=== PATIENT | male | born 1965 | race Caucasian/White ===

== ENCOUNTER 2022-03-18 09:47 | Day surgery (SDC) | payer OTHER ==
[2022-03-16 12:15] LABS: BASOPHILS % (AUTO) 0.9 % (0-1); EOSINOPHILS % (AUTO) 0.7 % (0-6); LYMPHOCYTES # (AUTO) 1.3 X10'3 (1.1-4.8); LYMPHOCYTES % (AUTO) 29.8 % (21-51); MEAN CORPUSCULAR HGB CONC 31.1 g/dL (33.0-36.5); MEAN PLATELET VOLUME 8.8 FL (7.4-10.4); MONOCYTES # (AUTO) 0.4 X10'3 (0-0.9); MONOCYTES % (AUTO) 9.3 % (2-12); NEUTROPHILS # (AUTO) 2.6 X10'3 (1.8-7.7); NEUTROPHILS % (AUTO) 59.3 % (42-75); PRE OP HEMATOCRIT 39.4 % (42.0-52.0); PRE OP HEMOGLOBIN 12.3 g/dL (14.0-17.9); PRE OP PLATELET COUNT 268 X10'3 (140-440); RED BLOOD COUNT 5.33 X10'6 (4.70-6.10); RED CELL DISTRIBUTION WIDTH 33.2 % (11.5-14.5)
[2022-03-16 12:21] LABS: CLARITY,URINE CLEAR (Clear); COLOR,URINE YELLOW (Yellow); GLUCOSE, URINE NEGATIVE (Neg); KETONES,URINE NEGATIVE (Neg); LEUKOCYTE ESTERASE ,URINE NEGATIVE (Neg); NITRITES, URINE NEGATIVE (Neg); OCCULT BLOOD,URINE NEGATIVE (Neg); PROTEIN,URINE NEGATIVE (Neg); UROBILINOGEN,URINE 0.2 E.U/dL (0.2-1.0)
[2022-03-16 12:25] LABS: UA COLLECTION TYPE CLN CATCH MIDSTREAM
[2022-03-16 12:33] LABS: ALBUMIN 2.5 G/DL (3.4-5.0); ALBUMIN/GLOBULIN RATIO 0.7 (1.1-1.5); ALKALINE PHOSPHATASE 108 IU/L (46-116); BLOOD UREA NITROGEN 10 MG/DL (7-18); BUN/CREATININE RATIO 11.1 (5.4-32.0); CALCIUM 8.7 MG/DL (8.5-10.1); CHLORIDE 105 MMOL/L (99-107); PRE OP ALT 21 U/L (30-65); PRE OP ANION GAP 4 (8-16); PRE OP AST 16 U/L (10-37); PRE OP BILIRUB, TOTAL 0.3 MG/DL (0.0-1.0); PRE OP GLUCOSE 85 MG/DL (70-104); PRE OP POTASSIUM 3.9 MMOL/L (3.4-5.1); PRE OP SODIUM 140 MMOL/L (135-145); TOTAL CARBON DIOXIDE 31.5 MMOL/L (24-32); TOTAL PROTEIN 6.1 G/DL (6.4-8.2); eGFR 87 ML/MIN
[2022-03-16 12:51] LABS: ANISOCYTOSIS 3+; ELLIPTOCYTES 1+; HYPOCHROMASIA 1+; MICROCYTOSIS 1+; PLATELET ESTIMATE NORMAL
[~2022-03-18] VITALS: Ht 177.8 cm; Wt 70.0 kg
[2022-03-18] VITALS (12 sets, daily range): BP systolic 125–176; BP diastolic 82–132
[~2022-03-18 09:47] MED LIST: FERR325T28 PO; PANT40TA54 PO; ceFAZolin inj. 2,000 MG in dextrose 5%-water 100 ML IV ONE; famotidine 20mg tablet PO ONE; ringers solution, lacted 1,000 ML IV SCH
[2022-03-18] MEDS ORDERED: BUPIVAcaine/PF 2.5 mg/ml (0.25%) 30ml vial ONE (14:37)
[2022-03-18] MEDS ORDERED: morphine 4 MG/ML inj SYRINge IV PRN (14:50)
[2022-03-18] MEDS ORDERED: meperidine/PF 25mg/ml syringe IV PRN ×3 (14:50)
[2022-03-18] MEDS ORDERED: acetaminophen 1,000mg/100ml IV 100 ML IV PRN (14:50)
[2022-03-18] MEDS ORDERED: hydrALAZINE 20mg/ml inj. IV PRN (14:50)
[2022-03-18] MEDS ORDERED: proCHLORperazine 10 MG/2 ml inj IV PRN (14:50)
[2022-03-18] MEDS ORDERED: ondansetron/PF 4mg/2ml inj IV PRN (14:50)
[2022-03-18] MEDS ORDERED: morphine 2 MG/ML inj. syringe IV PRN (14:50)
[2022-03-18] MEDS ORDERED: labetalol 20mg/4ml (5mg/ml) syringe IV PRN (14:50)
[2022-03-18] MEDS ORDERED: ringers solution, lacted 1,000 ML IV SCH (14:50)
[2022-03-18] MEDS ORDERED: sevoflurane 250ml liquid IH ONE (14:59)
[2022-03-18] MEDS ORDERED: midazolam 1 mg/ML 2ml injection ONE (15:00)
[2022-03-18] MEDS ORDERED: fentaNYL /PF 50mcg/ml 5ml ampule ONE (15:00)
[2022-03-18] MEDS ORDERED: dexamethasone sod phosphate 4mg/ml inj. ONE (15:42)
[2022-03-18] MEDS ORDERED: ondansetron/PF 4mg/2ml inj ONE (15:42)
[2022-03-18] MEDS ORDERED: LIDOcaine 2% (20mg/ml) 5ml vial ONE (15:42)
[2022-03-18] MEDS ORDERED: propofol inj 20 ML IV ONE (15:42)
[2022-03-18] MEDS ORDERED: rocuronium 10mg/ml inj IV ONE (15:42)
[2022-03-18] MEDS ORDERED: glycopyrrolate 0.2mg/ml inj ONE (16:02)
[2022-03-18] MEDS ORDERED: neostigmine methylsulfate 1 MG/ML 10ml vial ONE (16:02)
--- NOTE | 2022-03-18 16:20 | NUR ---
Received from OR via [facility] , accompanied by Anesthesiologist RODY and report given by Anesthesiolgist. PT ON MASK FOR O2. PT DROWSY BUT ABLE TO FOLLOW DIRECTIONS. DENIES PAIN OR DISCOMFORT
--- NOTE | 2022-03-18 18:45 | NUR ---
I HAVE REVIEWED D/C INSTRUCTIONS WITH PATIENT AND THEY HAVE VERBALIZED UNDERSTANDING OF INSTRUCTIONS. PATIENT D/C HOME WITH ALL BELONGINGS AND FAMILY GAVE TRANSPORT
== END 2022-03-18 18:25 | disposition home or self-care (01) ==
LOC: PAS 09:47
PROVIDERS: ATTEND Surgery
DX: K81.1 Chronic cholecystitis (principal); K21.9 Gastro-esophageal reflux disease without esophagitis; M19.90 Unspecified osteoarthritis, unspecified site; F32.9 Major depressive disorder, single episode, unspecified; Z79.899 Other long term (current) drug therapy; Z98.890 Other specified postprocedural states
CPT/HCPCS: 47562; 80053; 81003; 82948; 85025; 87811; 93005; J0131; J0690; J1100; J2175; J2250; J2405; J2704; J2710; J3010; J3490; J7030; J7060; J7120; Z7506; Z7508; Z7512; 85008; A4215; A4618; A7000

== ENCOUNTER 2022-09-29 18:22 | Inpatient (IN) | payer OTHER ==
[~2022-09-29] VITALS: Ht 177.8 cm; Wt 148.2 kg
[~2022-09-29 18:22] MED LIST changes: -ceFAZolin inj. 2,000 MG in dextrose 5%-water 100 ML IV ONE; -famotidine 20mg tablet PO ONE; -ringers solution, lacted 1,000 ML IV SCH
[2022-09-29 19:40] LABS: BASOPHILS % (AUTO) 0.2 % (0-1); EOSINOPHILS % (AUTO) 0 % (0-6); HEMATOCRIT 44.9 % (42.0-52.0); HEMOGLOBIN 15.2 g/dl (14.0-17.9); LYMPHOCYTES # (AUTO) 1.1 X10'3 (1.1-4.8); LYMPHOCYTES % (AUTO) 10.5 % (21-51); MEAN CORPUSCULAR HEMOGLOBIN 30.8 PG (27.0-31.0); MEAN CORPUSCULAR HGB CONC 33.9 g/dL (33.0-36.5); MEAN CORPUSCULAR VOLUME 91.1 FL (78-98); MEAN PLATELET VOLUME 6.7 FL (7.4-10.4); MONOCYTES # (AUTO) 0.7 X10'3 (0-0.9); MONOCYTES % (AUTO) 6.9 % (2-12); NEUTROPHILS # (AUTO) 8.6 X10'3 (1.8-7.7); NEUTROPHILS % (AUTO) 82.4 % (42-75); PLATELET COUNT 445 X10'3 (140-440); RED BLOOD COUNT 4.94 X10'6 (4.70-6.10); RED CELL DISTRIBUTION WIDTH 14.7 % (11.5-14.5); WHITE BLOOD COUNT 10.4 X10'3 (4.5-11.0)
[2022-09-29 19:55] LABS: ALANINE AMINOTRANSFERASE 15 U/L (12-78); ALBUMIN 2.1 G/DL (3.4-5.0); ALBUMIN/GLOBULIN RATIO 0.5 (1.1-1.5); ALKALINE PHOSPHATASE 131 IU/L (46-116); ANION GAP 6 (8-16); ASPARTATE AMINO TRANSFERASE 18 U/L (10-37); BILIRUBIN,TOTAL 0.4 MG/DL (0.1-1.0); BLOOD UREA NITROGEN 17 MG/DL (7-18); BUN/CREATININE RATIO 16.5 (10.0-20.0); CALCIUM 8.4 MG/DL (8.5-10.1); CHLORIDE 104 MMOL/L (99-107); CREATININE 1.03 MG/DL (0.60-1.10); GLUCOSE 128 MG/DL (70-104); LIPASE < 50 U/L (73-393); POTASSIUM 3.8 MMOL/L (3.5-5.1); SODIUM 140 MMOL/L (135-145); TOTAL CARBON DIOXIDE 30.5 MMOL/L (24-32); eGFR 74 ML/MIN
[2022-09-29 20:05] LABS: CLARITY,URINE SLIGHTLY CLOUDY (Clear); GLUCOSE, URINE NEGATIVE (Neg); KETONES,URINE TRACE mg/dl (Neg); LEUKOCYTE ESTERASE ,URINE NEGATIVE (Neg); NITRITES, URINE NEGATIVE (Neg); OCCULT BLOOD,URINE NEGATIVE (Neg); PROTEIN,URINE NEGATIVE (Neg)
[2022-09-29 20:14] LABS: COLOR,URINE DARK YELLOW (Yellow); UA COLLECTION TYPE CLN CATCH MIDSTREAM
[2022-09-29 20:16] LABS: AMORPHOUS PHOSPHATES 3+; BACTERIA,URINE FEW /HPF (Neg); RBC,URINE 0-2 /HPF (0-2); SQUAMOUS EPITHELIAL CELL,UR FEW /LPF (FEW); WBC,URINE 0-4 /HPF (0-4)
[2022-09-29] MEDS ORDERED: ondansetron 4mg rapidly disintigrating tab PO ONE (23:05)
[2022-09-29 23:19] LABS: MAGNESIUM 1.9 MG/DL (1.5-2.4)
[2022-09-30] MEDS ORDERED: ondansetron/PF 4mg/2ml inj IV ONE (00:20)
[2022-09-30] MEDS ORDERED: pantoprazole 40mg IV 80 MG in normal saline 100ml IV soln 100 ML IV ONE (00:20)
[2022-09-30] MEDS ORDERED: normal saline 1000ml 1,000 ML IV ONE ×2 (00:20→04:25)
[2022-09-30] MEDS ORDERED: iohexol 350MG/ML 100ml bottle IV ONE (00:55)
[2022-09-30] MEDS ORDERED: magnesium 2GM in 50ml NS 50 ML IV PRN (05:10)
[2022-09-30] MEDS ORDERED: ondansetron/PF 4mg/2ml inj IV PRN (05:10)
[2022-09-30] MEDS ORDERED: potassium Cl 40MEQ/1/2NS 520ml 520 ML IV PRN (05:10)
[2022-09-30] MEDS ORDERED: magnesium 4gm in 100ml NS 100 ML IV PRN (05:10)
[2022-09-30] MEDS: normal saline 1000ml 1,000 ML IV SCH ×2 (06:30→15:44)
[2022-09-30] MEDS: pantoprazole 40MG/NS 100ML BAG 100 ML IV SCH ×4 (06:59→20:20)
[2022-09-30] MEDS: K and/or MAG REPLACEMENT MC SCH ×2 (08:05→19:57)
[2022-09-30] MEDS: heparin, porcine 5000 units/ml vial SQ SCH ×2 (08:33→20:17)
[2022-09-30] MEDS: morphine 2 MG/ML inj. syringe IV PRN ×2 (08:50→12:11)
--- NOTE | 2022-09-30 11:02 | NUR ---
Patient in room ED 2 awaiting arrival to [facility]. I have received report from EMELY FROM ED and had the opportunity to ask questions.
[2022-09-30] MEDS ORDERED: HYDR-3972 PO (12:54)
--- NOTE | 2022-09-30 14:22 | NUR ---
PAGER ID: [phone] MESSAGE: Darren Sinha [id number] Pt. has uncontrollable 10/10 ache and sharp pains in upper quadrants of abdomen. Please call me.. Macy [phone]
[2022-09-30 14:42] VITALS: BP 137/74
[2022-09-30] MEDS: HYDROmorphone 1 mg/ml syringe IV PRN ×2 (14:53→20:21)
[2022-09-30] MEDS: metroNIDAZOLE-Flagyl 500mg/NS 100 ML IV SCH (15:38)
[2022-09-30] MEDS: levoFLOXACIN-Levaquin 500mg/D5 100 ML IV SCH (16:56)
[2022-09-30 18:00] VITALS: BP 133/74
--- NOTE | 2022-09-30 18:00 | NUR ---
Patient in room [facility]. I have received report from janet orozco and had the opportunity to ask questions and assume patient care.
--- NOTE | 2022-09-30 18:27 | NUR ---
GAVE REPORT TO MOMO BOURNE AND SULEMAN HERRONN
[2022-09-30 22:00] VITALS: BP 112/82
--- NOTE | 2022-09-30 22:00 | NUR ---
informed dr shrestha that pt had a bs of 69 and only had NS running at 100 and he is NPO and has been all day for biopsy tomorrow. he stated to give him d5 1/2 ns and a half amp of dextrose to bring his blood sugars up. and then retake at 15 min.
[2022-09-30] MEDS ORDERED: dextrose 50%-water 50ml dispensing syringe IV PRN ×2 (22:05)
[2022-09-30] MEDS: dextrose 5%-1/2 normal saline 1,000 ML IV SCH (22:09)
[2022-10-01] VITALS (14 sets, daily range): BP systolic 121–166; BP diastolic 76–97
[2022-10-01] MEDS: normal saline 1000ml 1,000 ML IV SCH ×3 (00:27→21:10)
--- NOTE | 2022-10-01 00:28 | NUR ---
per pharmacist D5 1/2 ns and flagyl are compatible at y site.
[2022-10-01] MEDS: metroNIDAZOLE-Flagyl 500mg/NS 100 ML IV SCH ×3 (00:35→16:42)
[2022-10-01] MEDS: pantoprazole 40MG/NS 100ML BAG 100 ML IV SCH ×3 (00:42→11:57)
[2022-10-01] MEDS: HYDROmorphone 1 mg/ml syringe IV PRN ×2 (00:45→05:16)
--- NOTE | 2022-10-01 01:59 | NUR ---
CONTROL ROOM TECHNICIAN documentation: I have reviewed and agree with all interventions, assessments performed and documented by Christel GROSS II. I have changed what I saw within my own assessment that i did not agree with.
--- NOTE | 2022-10-01 02:50 | NUR ---
Problems reprioritized. Patient report given, questions answered & plan of care reviewed with angus orozco.
--- NOTE | 2022-10-01 03:00 | NUR ---
ASSUMED CARE OF PATIENT FROM ASA BOURNE. RESTING COMFORTABLY NO CHANGE IN ASSESSMENT.
--- NOTE | 2022-10-01 06:41 | NUR ---
Reported off to RENATO Brown
[2022-10-01] MEDS ORDERED: BUPIVAcaine/PF 2.5 mg/ml (0.25%) 30ml vial ONE (06:46)
--- NOTE | 2022-10-01 06:46 | NUR ---
Patient in room [facility]. I have received report from Christel BOURNE and had the opportunity to ask questions and assume patient care. Pt found sleeping, eyes closed, eye mask in place, breathing even and unlabored on room air. IVF infusing @ 100ml/hr. No distress noted.
[2022-10-01 07:14] LABS: BASOPHILS # (AUTO) 0.1 X10'3 (0-0.2); BASOPHILS % (AUTO) 1.2 % (0-1); EOSINOPHILS % (AUTO) 0.8 % (0-6); HEMATOCRIT 33.6 % (42.0-52.0); HEMOGLOBIN 11.2 g/dl (14.0-17.9); LYMPHOCYTES # (AUTO) 1.4 X10'3 (1.1-4.8); LYMPHOCYTES % (AUTO) 26.8 % (21-51); MEAN CORPUSCULAR HEMOGLOBIN 30.8 PG (27.0-31.0); MEAN CORPUSCULAR HGB CONC 33.5 g/dL (33.0-36.5); MEAN CORPUSCULAR VOLUME 91.9 FL (78-98); MEAN PLATELET VOLUME 7.5 FL (7.4-10.4); MONOCYTES # (AUTO) 0.5 X10'3 (0-0.9); MONOCYTES % (AUTO) 10.3 % (2-12); NEUTROPHILS # (AUTO) 3.1 X10'3 (1.8-7.7); NEUTROPHILS % (AUTO) 60.9 % (42-75); PLATELET COUNT 261 X10'3 (140-440); RED BLOOD COUNT 3.65 X10'6 (4.70-6.10); RED CELL DISTRIBUTION WIDTH 14.5 % (11.5-14.5); WHITE BLOOD COUNT 5.2 X10'3 (4.5-11.0)
--- NOTE | 2022-10-01 07:20 | NUR ---
Pt leaving for Surg with OR x 1 RN. Problems reprioritized. Patient report given, questions answered & plan of care reviewed with Vivian BOURNE. AM BGM -96
[2022-10-01] MEDS ORDERED: ondansetron/PF 4mg/2ml inj IV PRN (07:25)
[2022-10-01] MEDS ORDERED: ringers solution, lacted 1,000 ML IV SCH (07:25)
[2022-10-01] MEDS ORDERED: proCHLORperazine 10 MG/2 ml inj IV PRN (07:25)
[2022-10-01] MEDS ORDERED: morphine 4 MG/ML inj SYRINge IV PRN (07:25)
[2022-10-01] MEDS ORDERED: morphine 2 MG/ML inj. syringe IV PRN (07:25)
[2022-10-01] MEDS ORDERED: meperidine/PF 25mg/ml syringe IV PRN ×3 (07:25)
[2022-10-01] MEDS ORDERED: BUPIVAcaine 0.5% inj/PF 30 ml vial IJ ONE (07:30)
[2022-10-01] MEDS ORDERED: levoFLOXACIN/D5W 500mg/100ml bag IV ONE (07:33)
[2022-10-01] MEDS ORDERED: metroNIDAZOLE 500mg/NS 100ml premix IV ONE (07:33)
[2022-10-01] MEDS ORDERED: sevoflurane 250ml liquid IH ONE (07:33)
[2022-10-01] MEDS ORDERED: fentaNYL/PF 50MCG/1 ML 2ML syringe ONE ×2 (07:40→09:22)
[2022-10-01] MEDS ORDERED: midazolam 1 mg/ML 2ml injection ONE (07:40)
[2022-10-01] MEDS ORDERED: rocuronium 10mg/ml inj IV ONE (07:44)
[2022-10-01] MEDS ORDERED: propofol inj 20 ML IV ONE (07:44)
[2022-10-01] MEDS: levoFLOXACIN-Levaquin 500mg/D5 100 ML IV SCH (07:45)
[2022-10-01 07:52] LABS: ALANINE AMINOTRANSFERASE 9 U/L (12-78); ALBUMIN 1.5 G/DL (3.4-5.0); ALBUMIN/GLOBULIN RATIO 0.6 (1.1-1.5); ALKALINE PHOSPHATASE 86 IU/L (46-116); ANION GAP 6 (8-16); ASPARTATE AMINO TRANSFERASE 13 U/L (10-37); BILIRUBIN,TOTAL 0.3 MG/DL (0.1-1.0); BLOOD UREA NITROGEN 15 MG/DL (7-18); BUN/CREATININE RATIO 21.4 (10.0-20.0); CALCIUM 7.9 MG/DL (8.5-10.1); CHLORIDE 108 MMOL/L (99-107); GLUCOSE 90 MG/DL (70-104); POTASSIUM 3.6 MMOL/L (3.5-5.1); SODIUM 140 MMOL/L (135-145); TOTAL CARBON DIOXIDE 25.8 MMOL/L (24-32); TOTAL PROTEIN 4.2 G/DL (6.4-8.2); eGFR > 90 ML/MIN
[2022-10-01] MEDS: K and/or MAG REPLACEMENT MC SCH ×2 (08:00→19:33)
[2022-10-01] MEDS: heparin, porcine 5000 units/ml vial SQ SCH ×2 (08:00→20:42)
[2022-10-01] MEDS ORDERED: albumin (Human) 5% 250ml 250 ML IV ONE (09:28)
[2022-10-01] MEDS ORDERED: dexamethasone sod phosphate 4mg/ml inj. ONE (09:29)
[2022-10-01] MEDS ORDERED: ondansetron/PF 4mg/2ml inj ONE (09:29)
[2022-10-01] MEDS ORDERED: sugammadex 200mg/2ml injection IV ONE (09:34)
--- NOTE | 2022-10-01 10:06 | NUR ---
Malnutrition Consult: Pt admit w/ abdominal pain DX enteritis w/ partial obstruction vs Ileus though passing gas and last BM 09/27 per EMR. Pt hx abdominal pain w/ N/V past year worsening over past 2 months TOOL SPECIALIST reports 60 pound wt loss per EMR. Pt last PO 09/26 and NPO this admit to OR this AM for lymph node biopsy per EMR. Pt has normal strength, no edema/wounds, and pending scaled wt this admit. Weight hx 75kg via chair scale 02/09, 70kg standing scale 03/12, and current reported wt 64.4kg though not scaled. If current reported wt is accurate this would be ~8% UBW loss 7 months non-severe and reported now 5 days NPO would meet minimum non-severe malnutrition criteria, however pt needs scaled wt and/or interview to more accurately determine nutrition status. notified of RD recs for scaled wt this admit. Malnutrition status pending at this time. Addendum: 10/01/22 at [address] Amended: Links added.
[2022-10-01] MEDS ORDERED: labetalol 20mg/4ml (5mg/ml) syringe IV PRN (10:10)
--- NOTE | 2022-10-01 10:38 | NUR ---
PATIENT HAS MET ALL CRITERIA FOR TRANSFER TO THE SURGICAL FLOOR. VSS. DRESSINGS INTACT. BED LOW, CALL LIGHT PRESENT AND 2 RAILS UP. RN PRESENT TO ACCEPT CARE OF PATIENT AND REPORT HAS BEEN CALLED. ALL QUESTIONS ANSWERED TO ACCEPTING RN. Addendum: 10/01/22 at 1042 by Ari Tay RN Amended: Links added.
--- NOTE | 2022-10-01 10:45 | NUR ---
Pt arrived via hospital bed, pt responsive to name, , sometimes location, reports 10/10 pain despite having received demerol 25-35 minutes ago to abdomen surgical site. Abdomen dressing clean/dry/intact. V/S BP 148/89, HR 82, RR 16, T97.6F, SPO2 93%. Pedal pulses palpable x 2.
[2022-10-01] MEDS ORDERED: naloxone 0.4 mg/ml inj IV PRN (11:00)
[2022-10-01] MEDS: dextrose 5%-1/2 normal saline 1,000 ML IV SCH ×2 (11:10→20:43)
[2022-10-01] MEDS: HYDROmorph/NS 0.2 mg/ml PCA 100 ML IV SCH ×7 (11:50→23:00)
[2022-10-01 12:00] LABS: APTT 27 SECONDS (22-32)
--- NOTE | 2022-10-01 17:50 | NUR ---
Paged Page Sent PAGER ID: [phone] MESSAGE: [id number]- Pt currently on D5-1/2, NPO since 09/29, BGM 228 at 1400hrs, BGM [id number], Do you want to continue D5-1/2? Thanks. Kevin Plaza LVN
--- NOTE | 2022-10-01 17:54 | NUR ---
Bed scale is not working. Pt refuses to use standing scale d/t increase abdominal pain. Addendum: 10/01/22 at 1754 by Kevin Plaza LVN Amended: Links added.
--- NOTE | 2022-10-01 18:08 | NUR ---
Paged Page Sent PAGER ID: [phone] MESSAGE: [id number]- Pt pain unmanaged with current Dilaudid CADD pump 0.2mg/ml q10min bolus dose only. Pt rating pain 9 or 10 now out of 10. How would you like to follow up? Kevin Plaza LVN
--- NOTE | 2022-10-01 18:20 | NUR ---
Problems reprioritized. Patient report given, questions answered & plan of care reviewed with Prudence. CADD pump settings verified. Dilaudid VTBI 73ml left.
--- NOTE | 2022-10-01 18:31 | NUR ---
Patient in room [facility]. I have received report from Yvonne GROSS and had the opportunity to ask questions and assume patient care.
--- NOTE | 2022-10-01 18:31 | NUR ---
Patient in room [facility]. I have received report from PAMELA GROSS and had the opportunity to ask questions and assume patient care.
[2022-10-02] MEDS: metroNIDAZOLE-Flagyl 500mg/NS 100 ML IV SCH ×4 (00:30→23:42)
[2022-10-02] MEDS: HYDROmorph/NS 0.2 mg/ml PCA 100 ML IV SCH ×12 (01:00→23:00)
--- NOTE | 2022-10-02 04:31 | NUR ---
Student documentation: I have reviewed and agree with all interventions, assessments performed and document by GIORGIO SY.
--- NOTE | 2022-10-02 04:32 | NUR ---
Student Medication Administration: For this medication-pass time frame, all medication were reviewed, dispensed, administered and documented per hospital policy by GIORGIO SY.
[2022-10-02] MEDS: dextrose 5%-1/2 normal saline 1,000 ML IV SCH ×3 (05:14→23:42)
--- NOTE | 2022-10-02 06:24 | NUR ---
Problems reprioritized. Patient report given, questions answered & plan of care reviewed with Paris.
--- NOTE | 2022-10-02 06:27 | NUR ---
Problems reprioritized. Patient report given, questions answered & plan of care reviewed with SIS BOURNE.
[2022-10-02 07:00] VITALS: BP 142/82
[2022-10-02] MEDS: normal saline 1000ml 1,000 ML IV SCH ×2 (07:10→16:56)
[2022-10-02 07:40] LABS: BASOPHILS % (AUTO) 0.1 % (0-1); EOSINOPHILS % (AUTO) 0 % (0-6); HEMATOCRIT 32.2 % (42.0-52.0); HEMOGLOBIN 10.6 g/dl (14.0-17.9); LYMPHOCYTES # (AUTO) 0.9 X10'3 (1.1-4.8); LYMPHOCYTES % (AUTO) 5.4 % (21-51); MEAN CORPUSCULAR HEMOGLOBIN 30.2 PG (27.0-31.0); MEAN CORPUSCULAR HGB CONC 32.8 g/dL (33.0-36.5); MEAN CORPUSCULAR VOLUME 92.1 FL (78-98); MEAN PLATELET VOLUME 7.3 FL (7.4-10.4); MONOCYTES # (AUTO) 1.2 X10'3 (0-0.9); MONOCYTES % (AUTO) 7.7 % (2-12); NEUTROPHILS % (AUTO) 86.8 % (42-75); PLATELET COUNT 310 X10'3 (140-440); RED CELL DISTRIBUTION WIDTH 14.6 % (11.5-14.5); WHITE BLOOD COUNT 16.1 X10'3 (4.5-11.0)
[2022-10-02] MEDS: K and/or MAG REPLACEMENT MC SCH ×2 (08:00→20:05)
[2022-10-02] MEDS: heparin, porcine 5000 units/ml vial SQ SCH ×2 (08:01→20:16)
[2022-10-02 08:26] LABS: ALANINE AMINOTRANSFERASE 12 U/L (12-78); ALBUMIN 1.6 G/DL (3.4-5.0); ALBUMIN/GLOBULIN RATIO 0.6 (1.1-1.5); ALKALINE PHOSPHATASE 69 IU/L (46-116); ANION GAP 7 (8-16); ASPARTATE AMINO TRANSFERASE 18 U/L (10-37); BILIRUBIN,TOTAL 0.3 MG/DL (0.1-1.0); BLOOD UREA NITROGEN 7 MG/DL (7-18); BUN/CREATININE RATIO 10.4 (10.0-20.0); CALCIUM 7.8 MG/DL (8.5-10.1); CHLORIDE 105 MMOL/L (99-107); CREATININE 0.67 MG/DL (0.60-1.10); GLUCOSE 122 MG/DL (70-104); POTASSIUM 3.4 MMOL/L (3.5-5.1); SODIUM 139 MMOL/L (135-145); TOTAL CARBON DIOXIDE 26.9 MMOL/L (24-32); TOTAL PROTEIN 4.3 G/DL (6.4-8.2); eGFR > 90 ML/MIN
[2022-10-02] MEDS: levoFLOXACIN-Levaquin 500mg/D5 100 ML IV SCH (10:08)
[2022-10-02 11:00] LABS: HBSAG SCREEN Negative (Negative); HEP B CORE AB, TOT Negative (Negative); HEPATITIS C VIRUS ANTIBODY Non Reactive (Non Reactive)
[2022-10-02 12:00] VITALS: BP 132/90
[2022-10-02] MEDS ORDERED: potassium Cl 20 mEq SR tablet PO PRN (15:15)
--- NOTE | 2022-10-02 16:43 | NUR ---
F/u for malnutrition consult: Pt and friend seen at bedside. Pt states UBW 190-200 lbs and reports 60-65 lb wt loss though wt has been stable in the 140s for about the last six months with gradual wt loss of 1-1.5 lbs q month. Per pt PO intake fluctuated [employer] d/t emesis and just overall not feeling well. Pt denies emesis with any specific food or fluid. Pt reports drinking a Boost PRN [employer] that contains 250-360 kcal. Per pt and friend, pt has an appetite and sometimes is starving though can't always eat d/t feeling sick. Per pt this has been ongoing since April 2021. Pt with no visible fat or muscle wasting appreciated however pt reports noticeable fat and muscle loss. Friend confirmed all information provided by pt. Pt currently meets criteria for non-severe malnutrition d/t poor PO intake and mild fat/muscle wasting. RD discussed ways to optimize nutrient intake with nutrient dense foods and ONS. RD also discussed a low fiber diet in view of recent GI surgery. All of patient's questions were answered at this time. Pt provided with ONS coupons and RD contact information and encouraged to reach out if needed. Pt denies food allergies or difficulty chewing/swallowing. Pt denies and flatus or BM post-op though states he was walking around the hallway to assist with moving his bowels. Will continue to follow closely. Recommendations: 1) Advance to low fiber diet as medically indicated in view of recent GI surgery 2) Monitor need for ONS with diet advancement 3) Bowel care per MD 4) Scaled weight this admit; subsequent weekly scaled weights Addendum: 10/02/22 at [address] Amended: Links added.
[2022-10-02] MEDS: PCA WASTE DOCUMENTATION 1 MG ML MC PRN (16:57)
--- NOTE | 2022-10-02 17:56 | NUR ---
patient voided very small amount in toilet. bladder scan showed 136mL. patient states he has no discomfort. will continue to monitor.
--- NOTE | 2022-10-02 18:16 | NUR ---
Problems reprioritized. Patient report given, questions answered & plan of care reviewed with TAYLA Higginbotham.
--- NOTE | 2022-10-02 18:47 | NUR ---
Patient in room [facility]. I have received report from SIS BOURNE and had the opportunity to ask questions and assume patient care.
--- NOTE | 2022-10-02 18:58 | NUR ---
Patient in room [facility]. I have received report from Paris BOURNE and had the opportunity to ask questions and assume patient care.
[2022-10-02 19:00] VITALS: BP 130/81
[2022-10-02] MEDS: enoxaparin 40mg/0.4ml syringe SUBCUT SCH (20:17)
[2022-10-02 22:00] VITALS: BP 124/87
[2022-10-03] MEDS: HYDROmorph/NS 0.2 mg/ml PCA 100 ML IV SCH ×12 (01:00→23:00)
[2022-10-03] MEDS: normal saline 1000ml 1,000 ML IV SCH ×3 (03:10→23:10)
--- NOTE | 2022-10-03 06:28 | NUR ---
Problems reprioritized. Patient report given, questions answered & plan of care reviewed with Miesha BOURNE.
--- NOTE | 2022-10-03 06:32 | NUR ---
Problems reprioritized. Patient report given, questions answered & plan of care reviewed with LYNN BOURNE.
--- NOTE | 2022-10-03 06:32 | NUR ---
Student documentation: I have reviewed and agree with all interventions, assessments performed and documented by GIORGIO STUDENT.
--- NOTE | 2022-10-03 06:33 | NUR ---
Student Medication Administration: For this medication-pass time frame, all medication were reviewed, dispensed, administered and documented per hospital policy by GIORGIO SY.
[2022-10-03 07:00] VITALS: BP 104/72
[2022-10-03 07:34] LABS: BASOPHILS # (AUTO) 0.1 X10'3 (0-0.2); BASOPHILS % (AUTO) 1.1 % (0-1); EOSINOPHILS # (AUTO) 0.1 X10'3 (0-0.9); EOSINOPHILS % (AUTO) 0.6 % (0-6); HEMATOCRIT 28.1 % (42.0-52.0); HEMOGLOBIN 9.4 g/dl (14.0-17.9); MEAN CORPUSCULAR HEMOGLOBIN 30.7 PG (27.0-31.0); MEAN CORPUSCULAR HGB CONC 33.6 g/dL (33.0-36.5); MEAN CORPUSCULAR VOLUME 91.5 FL (78-98); MEAN PLATELET VOLUME 7.4 FL (7.4-10.4); MONOCYTES # (AUTO) 0.6 X10'3 (0-0.9); MONOCYTES % (AUTO) 6.7 % (2-12); NEUTROPHILS # (AUTO) 6.7 X10'3 (1.8-7.7); NEUTROPHILS % (AUTO) 79.6 % (42-75); PLATELET COUNT 247 X10'3 (140-440); RED BLOOD COUNT 3.08 X10'6 (4.70-6.10); RED CELL DISTRIBUTION WIDTH 14.7 % (11.5-14.5); WHITE BLOOD COUNT 8.5 X10'3 (4.5-11.0)
[2022-10-03 07:45] LABS: ALANINE AMINOTRANSFERASE 26 U/L (12-78); ALBUMIN 1.5 G/DL (3.4-5.0); ALBUMIN/GLOBULIN RATIO 0.6 (1.1-1.5); ALKALINE PHOSPHATASE 63 IU/L (46-116); ANION GAP 3 (8-16); ASPARTATE AMINO TRANSFERASE 16 U/L (10-37); BILIRUBIN,TOTAL 0.3 MG/DL (0.1-1.0); BLOOD UREA NITROGEN 6 MG/DL (7-18); BUN/CREATININE RATIO 8.1 (10.0-20.0); CHLORIDE 105 MMOL/L (99-107); CREATININE 0.74 MG/DL (0.60-1.10); GLUCOSE 89 MG/DL (70-104); POTASSIUM 3.4 MMOL/L (3.5-5.1); SODIUM 138 MMOL/L (135-145); TOTAL CARBON DIOXIDE 29.8 MMOL/L (24-32); TOTAL PROTEIN 4.2 G/DL (6.4-8.2); eGFR > 90 ML/MIN
[2022-10-03] MEDS: levoFLOXACIN-Levaquin 500mg/D5 100 ML IV SCH (08:40)
[2022-10-03] MEDS: potassium Cl 20 mEq SR tablet PO PRN ×2 (08:41→15:43)
[2022-10-03] MEDS: heparin, porcine 5000 units/ml vial SQ SCH ×2 (08:42→22:09)
[2022-10-03] MEDS: K and/or MAG REPLACEMENT MC SCH ×2 (08:43→19:35)
[2022-10-03] MEDS: metroNIDAZOLE-Flagyl 500mg/NS 100 ML IV SCH ×3 (08:43→23:56)
[2022-10-03] MEDS: dextrose 5%-1/2 normal saline 1,000 ML IV SCH ×2 (09:17→19:34)
[2022-10-03 10:00] VITALS: BP 109/77
[2022-10-03 18:00] VITALS: BP 136/83
--- NOTE | 2022-10-03 18:14 | NUR ---
Gave report to Prudence TAYLA.
--- NOTE | 2022-10-03 18:17 | NUR ---
Patient in room [facility]. I have received report from LYNN BOURNE and had the opportunity to ask questions and assume patient care.
[2022-10-03 22:00] VITALS: BP 148/94
[2022-10-03] MEDS: enoxaparin 40mg/0.4ml syringe SUBCUT SCH (22:08)
[2022-10-04] MEDS: HYDROmorph/NS 0.2 mg/ml PCA 100 ML IV SCH ×12 (01:00→23:00)
[2022-10-04] MEDS: PCA WASTE DOCUMENTATION 1 MG ML MC PRN (01:16)
[2022-10-04] MEDS: dextrose 5%-1/2 normal saline 1,000 ML IV SCH ×2 (04:54→16:23)
--- NOTE | 2022-10-04 06:05 | NUR ---
Problems reprioritized. Patient report given, questions answered & plan of care reviewed with LYNN BOURNE.
[2022-10-04 07:46] LABS: EOSINOPHILS # (AUTO) 0.2 X10'3 (0-0.9); MEAN CORPUSCULAR HGB CONC 33.7 g/dL (33.0-36.5); WHITE BLOOD COUNT 6.2 X10'3 (4.5-11.0)
[2022-10-04 07:48] LABS: BASOPHILS # (AUTO) 0.1 X10'3 (0-0.2); BASOPHILS % (AUTO) 1.5 % (0-1); EOSINOPHILS % (AUTO) 2.8 % (0-6); HEMATOCRIT 28.2 % (42.0-52.0); HEMOGLOBIN 9.5 g/dl (14.0-17.9); LYMPHOCYTES # (AUTO) 0.9 X10'3 (1.1-4.8); LYMPHOCYTES % (AUTO) 15.1 % (21-51); MEAN CORPUSCULAR HEMOGLOBIN 31.2 PG (27.0-31.0); MEAN CORPUSCULAR VOLUME 92.4 FL (78-98); MEAN PLATELET VOLUME 7.7 FL (7.4-10.4); MONOCYTES # (AUTO) 0.3 X10'3 (0-0.9); MONOCYTES % (AUTO) 5.6 % (2-12); NEUTROPHILS # (AUTO) 4.7 X10'3 (1.8-7.7); PLATELET COUNT 260 X10'3 (140-440); RED BLOOD COUNT 3.05 X10'6 (4.70-6.10); RED CELL DISTRIBUTION WIDTH 14.9 % (11.5-14.5)
[2022-10-04 07:52] LABS: ALANINE AMINOTRANSFERASE 27 U/L (12-78); ALBUMIN 1.6 G/DL (3.4-5.0); ALBUMIN/GLOBULIN RATIO 0.6 (1.1-1.5); ALKALINE PHOSPHATASE 63 IU/L (46-116); ANION GAP 6 (8-16); ASPARTATE AMINO TRANSFERASE 18 U/L (10-37); BILIRUBIN,TOTAL 0.3 MG/DL (0.1-1.0); BLOOD UREA NITROGEN 3 MG/DL (7-18); BUN/CREATININE RATIO 4.6 (10.0-20.0); CALCIUM 7.8 MG/DL (8.5-10.1); CHLORIDE 105 MMOL/L (99-107); CREATININE 0.65 MG/DL (0.60-1.10); GLUCOSE 92 MG/DL (70-104); SODIUM 139 MMOL/L (135-145); TOTAL CARBON DIOXIDE 27.7 MMOL/L (24-32); TOTAL PROTEIN 4.4 G/DL (6.4-8.2); eGFR > 90 ML/MIN
[2022-10-04] MEDS: K and/or MAG REPLACEMENT MC SCH ×2 (08:00→19:57)
[2022-10-04] MEDS: metroNIDAZOLE-Flagyl 500mg/NS 100 ML IV SCH ×2 (08:53→16:22)
[2022-10-04] MEDS: levoFLOXACIN-Levaquin 500mg/D5 100 ML IV SCH (08:53)
[2022-10-04] MEDS: heparin, porcine 5000 units/ml vial SQ SCH (08:54)
[2022-10-04] MEDS: normal saline 1000ml 1,000 ML IV SCH (09:10)
--- NOTE | 2022-10-04 18:26 | NUR ---
GAVE REPORT TO MIKA BOURNE AND IVANA HERRONN
[2022-10-04 18:30] VITALS: BP 129/79
[2022-10-04] MEDS: enoxaparin 40mg/0.4ml syringe SUBCUT SCH (20:00)
[2022-10-04 22:00] VITALS: BP 148/92
[2022-10-05] MEDS: metroNIDAZOLE-Flagyl 500mg/NS 100 ML IV SCH ×3 (00:11→16:57)
[2022-10-05] MEDS: dextrose 5%-1/2 normal saline 1,000 ML IV SCH ×3 (00:13→21:21)
[2022-10-05] MEDS: HYDROmorph/NS 0.2 mg/ml PCA 100 ML IV SCH ×13 (01:00→23:00)
--- NOTE | 2022-10-05 06:35 | NUR ---
Problems reprioritized. Patient report given, questions answered & plan of care reviewed with Leny. Addendum: 10/05/22 at 0636 by Shlomo Muñoz RN Amended: Links added.
[2022-10-05 07:00] VITALS: BP 126/82
[2022-10-05 07:01] LABS: BASOPHILS % (AUTO) 0.8 % (0-1); EOSINOPHILS # (AUTO) 0.2 X10'3 (0-0.9); HEMATOCRIT 28.2 % (42.0-52.0); HEMOGLOBIN 9.2 g/dl (14.0-17.9); LYMPHOCYTES # (AUTO) 0.9 X10'3 (1.1-4.8); LYMPHOCYTES % (AUTO) 17.7 % (21-51); MEAN CORPUSCULAR HEMOGLOBIN 29.9 PG (27.0-31.0); MEAN CORPUSCULAR HGB CONC 32.6 g/dL (33.0-36.5); MEAN CORPUSCULAR VOLUME 91.8 FL (78-98); MEAN PLATELET VOLUME 7.3 FL (7.4-10.4); MONOCYTES # (AUTO) 0.4 X10'3 (0-0.9); NEUTROPHILS # (AUTO) 3.6 X10'3 (1.8-7.7); NEUTROPHILS % (AUTO) 69.5 % (42-75); PLATELET COUNT 272 X10'3 (140-440); RED BLOOD COUNT 3.07 X10'6 (4.70-6.10); RED CELL DISTRIBUTION WIDTH 14.5 % (11.5-14.5); WHITE BLOOD COUNT 5.1 X10'3 (4.5-11.0)
[2022-10-05 07:04] LABS: ALANINE AMINOTRANSFERASE 26 U/L (12-78); ALBUMIN 1.5 G/DL (3.4-5.0); ALBUMIN/GLOBULIN RATIO 0.5 (1.1-1.5); ALKALINE PHOSPHATASE 59 IU/L (46-116); ANION GAP 4 (8-16); ASPARTATE AMINO TRANSFERASE 16 U/L (10-37); BILIRUBIN,TOTAL 0.3 MG/DL (0.1-1.0); BLOOD UREA NITROGEN 2 MG/DL (7-18); BUN/CREATININE RATIO 3.4 (10.0-20.0); CALCIUM 7.8 MG/DL (8.5-10.1); CHLORIDE 106 MMOL/L (99-107); CREATININE 0.58 MG/DL (0.60-1.10); GLUCOSE 103 MG/DL (70-104); POTASSIUM 3.3 MMOL/L (3.5-5.1); SODIUM 140 MMOL/L (135-145); TOTAL CARBON DIOXIDE 29.6 MMOL/L (24-32); TOTAL PROTEIN 4.3 G/DL (6.4-8.2); eGFR > 90 ML/MIN
--- NOTE | 2022-10-05 07:47 | NUR ---
ACTUAL ML IN DIL CADD BAG IS 0 AT THIS TIME. DISCREPENCY IN DOCUMENTATION.
[2022-10-05] MEDS: K and/or MAG REPLACEMENT MC SCH (08:00)
[2022-10-05] MEDS: levoFLOXACIN-Levaquin 500mg/D5 100 ML IV SCH (10:39)
[2022-10-05 11:00] VITALS: BP 150/86
--- NOTE | 2022-10-05 15:32 | NUR ---
100ml dilaudid waste from bag and tubing. wasted with [facility] pharmacist and rx tech Jamilah. Pump to pharmacy via Miguel and Jamilah rx tech.
[2022-10-05 18:30] VITALS: BP 138/89
[2022-10-05] MEDS: enoxaparin 40mg/0.4ml syringe SUBCUT SCH (19:55)
[2022-10-05] MEDS ORDERED: potassium Cl 40MEQ/1/2NS 520ml 520 ML IV PRN (20:05)
[2022-10-05] MEDS ORDERED: magnesium 2GM in 50ml NS 50 ML IV PRN (20:05)
[2022-10-05] MEDS ORDERED: magnesium 4gm in 100ml NS 100 ML IV PRN (20:05)
[2022-10-05] MEDS ORDERED: magnesium Cl slow-release 64mg tablet PO PRN (20:05)
[2022-10-05] MEDS ORDERED: potassium Cl 40MEQ/1/2NS 520ml 520 ML IV ONE (21:00)
[2022-10-05 22:00] VITALS: BP 128/83
[2022-10-06] MEDS: metroNIDAZOLE-Flagyl 500mg/NS 100 ML IV SCH ×3 (00:35→15:52)
[2022-10-06] MEDS: HYDROmorph/NS 0.2 mg/ml PCA 100 ML IV SCH ×6 (00:51→11:00)
[2022-10-06 05:21] LABS: MAGNESIUM 1.8 MG/DL (1.5-2.4); POTASSIUM 3.9 MMOL/L (3.5-5.1)
[2022-10-06 06:00] VITALS: BP 133/82
--- NOTE | 2022-10-06 06:22 | NUR ---
Problems reprioritized. Patient report given, questions answered & plan of care reviewed with DANIEL. Addendum: 10/06/22 at 0623 by Shlomo Muñoz RN Amended: Links added.
--- NOTE | 2022-10-06 06:37 | NUR ---
Patient in room [facility] 344. I have received report from TAYLA Del Real and had the opportunity to ask questions and assume patient care.
[2022-10-06] MEDS: K and/or MAG REPLACEMENT MC SCH ×2 (08:00→20:00)
[2022-10-06] MEDS: levoFLOXACIN-Levaquin 500mg/D5 100 ML IV SCH (08:49)
[2022-10-06 11:00] VITALS: BP 131/81
[2022-10-06] MEDS: pantoprazole 40mg Tablet.DR PO SCH (11:06)
[2022-10-06] MEDS: dextrose 5%-1/2 normal saline 1,000 ML IV SCH ×3 (11:07→21:28)
[2022-10-06] MEDS: PCA WASTE DOCUMENTATION 1 MG ML MC PRN (12:32)
[2022-10-06] MEDS: HYDROcodone/acetaminophen 10/325mg tab PO PRN ×3 (13:07→21:27)
--- NOTE | 2022-10-06 13:52 | NUR ---
Called to Dr. Castaneda regarding patient passing gas but no BM, LBM 09/[address] Castaneda had any new orders. Dr. Castaneda stated "that's okay he can do it on his own. Give him Prune juice. Nothing but prune juice." Will give prune juice.
--- NOTE | 2022-10-06 14:53 | NUR ---
Reassessment: Patient's diet has just been advanced to regular today. Pt seen at bedside states he hasn't had a BM yet though he passed gas today. Pt denies any food preferences at this time and states he didn't eat more of his lunch d/t trying to progress PO intake slowly. Pt provided with written material low fiber nutrition therapy education with a list of fiber content in food per pt request. Pt already received verbal review, ONS coupons, and RD contact information. Per RN note physician only okayed for pt to have prune juice to assist with bowel regularity. Will continue to follow closely. Recommendations: 1) Change to low fiber diet as medically indicated in view of recent GI surgery 2) Monitor need for ONS with diet advancement 3) Bowel care per MD 4) Weekly scaled weights Addendum: 10/06/22 at [address] Amended: Links added.
[2022-10-06 18:00] VITALS: BP 143/88
--- NOTE | 2022-10-06 18:43 | NUR ---
Problems reprioritized. Patient report given, questions answered & plan of care reviewed with TAYLA Quick.
--- NOTE | 2022-10-06 18:46 | NUR ---
Prune juice was offered to patient. Patient refused. Patient states he has not had a BM as he has not eaten. Today is first day he has diet advanced from clear liquids. Patient states he will ask for prune juice "if I feel like I need it." Will continue to monitor.
--- NOTE | 2022-10-06 18:47 | NUR ---
Patient in room [facility]. I have received report from ROGELIO BOURNE and had the opportunity to ask questions and assume patient care.
[2022-10-06] MEDS: enoxaparin 40mg/0.4ml syringe SUBCUT SCH (20:39)
[2022-10-06 22:00] VITALS: BP 127/78
[2022-10-07] MEDS: metroNIDAZOLE-Flagyl 500mg/NS 100 ML IV SCH ×3 (00:41→16:01)
[2022-10-07] MEDS: HYDROcodone/acetaminophen 10/325mg tab PO PRN ×4 (01:49→19:59)
[2022-10-07 04:20] LABS: MAGNESIUM 1.7 MG/DL (1.5-2.4); POTASSIUM 3.4 MMOL/L (3.5-5.1)
[2022-10-07 06:00] VITALS: BP 144/87
--- NOTE | 2022-10-07 06:13 | NUR ---
Problems reprioritized. Patient report given, questions answered & plan of care reviewed with JHOANA BOURNE.
--- NOTE | 2022-10-07 06:22 | NUR ---
Patient in room [facility]. I have received report from Yanci Quick and had the opportunity to ask questions and assume patient care.
[2022-10-07] MEDS: pantoprazole 40mg Tablet.DR PO SCH (07:54)
[2022-10-07] MEDS: potassium Cl 20 mEq SR tablet PO PRN ×3 (07:58→16:01)
[2022-10-07] MEDS: K and/or MAG REPLACEMENT MC SCH ×2 (08:00→20:00)
[2022-10-07] MEDS: levoFLOXACIN-Levaquin 500mg/D5 100 ML IV SCH (08:54)
[2022-10-07] MEDS: dextrose 5%-1/2 normal saline 1,000 ML IV SCH ×2 (08:58→19:59)
[2022-10-07 10:00] VITALS: BP 110/71
--- NOTE | 2022-10-07 15:34 | NUR ---
WOUND INFECTION EDUCATION PROVIDED BY WOUND CARE 1. Patient instructed to call their primary doctor, or go the ED immediately if any of the following symptoms occur: * Increased pain in wound * Increase in drainage from the wound * Redness in the skin surrounding the wound * Warmth in the skin surrounding the wound * Bleeding from the wound * Temperature of 101 or greater 2. If any of these occur while in the hospital tell a nurse immediately. Addendum: 10/07/22 at 1535 by Shazia Dias RN Amended: Links added.
[2022-10-07 15:44] VITALS: BP 135/83
[2022-10-07] MEDS: HYDROmorphone 1 mg/ml syringe IV PRN (15:45)
[2022-10-07 18:00] VITALS: BP 134/88
--- NOTE | 2022-10-07 18:46 | NUR ---
Problems reprioritized. Patient report given, questions answered & plan of care reviewed with TAYLA BADILLO. Addendum: 10/07/22 at 1846 by Sandi Kaufman RN Problems reprioritized. Patient report given, questions answered & plan of care reviewed with TAYLA URIAS.
--- NOTE | 2022-10-07 18:50 | NUR ---
Patient in room [facility]. I have received report from JHOANA BOURNE and had the opportunity to ask questions and assume patient care.
[2022-10-07] MEDS: enoxaparin 40mg/0.4ml syringe SUBCUT SCH (20:00)
[2022-10-07 22:00] VITALS: BP 122/74
[2022-10-08] MEDS: metroNIDAZOLE-Flagyl 500mg/NS 100 ML IV SCH ×2 (00:17→07:09)
[2022-10-08] MEDS: HYDROcodone/acetaminophen 10/325mg tab PO PRN ×2 (00:20→07:26)
[2022-10-08 05:10] LABS: MAGNESIUM 1.8 MG/DL (1.5-2.4); POTASSIUM 3.7 MMOL/L (3.5-5.1)
[2022-10-08 06:09] VITALS: BP 120/78
--- NOTE | 2022-10-08 06:30 | NUR ---
Patient in room [facility]. I have received report from Ynes BOURNE and had the opportunity to ask questions and assume patient care.
--- NOTE | 2022-10-08 06:31 | NUR ---
Problems reprioritized. Patient report given, questions answered & plan of care reviewed with BONG GROSS.
[2022-10-08] MEDS: pantoprazole 40mg Tablet.DR PO SCH (07:26)
[2022-10-08] MEDS: K and/or MAG REPLACEMENT MC SCH (08:00)
[2022-10-08] MEDS: levoFLOXACIN-Levaquin 500mg/D5 100 ML IV SCH (08:21)
[2022-10-08] MEDS ORDERED: oxyCODONE/APAP 10/325mg tablet PO ONE ×2 (09:55→15:00)
--- NOTE | 2022-10-08 10:11 | NUR ---
Wound care offered and declined, patient stated "Wound care told me yesterday that they would be back to see me today before I discharge." Wound care assignment checked and wound care nurse is scheduled to see patient this shift Addendum: 10/08/22 at 1013 by Lucero Lundberg LVN Amended: Links added.
[2022-10-08] MEDS: dextrose 5%-1/2 normal saline 1,000 ML IV SCH (10:32)
[2022-10-08 11:24] VITALS: BP 120/77
[2022-10-08] MEDS ORDERED: OXYC-150 PO (13:27)
--- NOTE | 2022-10-08 15:07 | NUR ---
Patient is stable and appropriate for discharge. Wound care in to perform dressing change and provide education/supplies. Wound care obtained an updated picture. PIV removed, cannula intact- patient tolerated well. Patient dressed independently. Discharge paperwork reviewed, education provided. Patient encouraged to follow up with wound care, Dr. Castaneda, and PCP. Patient states understanding and does not have further questions. All belongings accounted for and sent home with patient. Patient walked out of facility with staff accompanied by his friend.
--- NOTE | 2022-10-08 15:30 | NUR ---
GREEN HOUSE MANAGER documentation: I have reviewed and agree with all interventions, assessments performed and documented by Lucero Lundberg LVN.
== END 2022-10-08 15:10 | disposition home health service (06) | DRG 827 ==
LOC: ER 18:24 → ED HOLD 09-30 05:13 → SUR 3N 09-30 13:35
PROVIDERS: ADMIT Internal Medicine; ATTEND Internal Medicine
PROC: BW211ZZ Computerized Tomography (CT Scan) of Abdomen and Pelvis using Low Osmolar Contrast (ICD-10-PCS; 2022-09-30)
PROC: 07BD0ZX Excision of Aortic Lymphatic, Open Approach, Diagnostic (ICD-10-PCS; 2022-10-01)
PROC: 0DB80ZZ Excision of Small Intestine, Open Approach (ICD-10-PCS; principal; 2022-10-01 07:33)
DX: D3A.098 Benign carcinoid tumors of other sites (principal); D62 Acute posthemorrhagic anemia; E46 Unspecified protein-calorie malnutrition; K56.600 Partial intestinal obstruction, unspecified as to cause; E87.20 Acidosis, unspecified; Z68.42 Body mass index [BMI] 45.0-49.9, adult; K56.7 Ileus, unspecified; K76.89 Other specified diseases of liver; E87.6 Hypokalemia; D50.9 Iron deficiency anemia, unspecified; K21.9 Gastro-esophageal reflux disease without esophagitis; R59.1 Generalized enlarged lymph nodes; Z79.899 Other long term (current) drug therapy; Z90.49 Acquired absence of other specified parts of digestive tract
CPT/HCPCS: 99285; Z7506; Z7508; 36415; 71045; 74177; 80053; 81001; 82948; 83605; 83690; 83735; 84132; 85025; 85730; 86704; 86705; 86706; 86803; 86885; 86900; 86901; 87040; 87081; 87340; 87522; 93005; A4215; A4618; A6253; A6258; A6446; A6449; A7000; C9113; G0378; J1100; J1170; J1644; J1650; J1956; J2175; J2250; J2270; J2405; J2704; J3010; J3480; J3490; J7030; J7042; P9045; Q9967; S0020

== ENCOUNTER 2023-09-29 13:19 | Emergency (ER) | payer OTHER ==
[~2023-09-29] VITALS: Ht 175.3 cm; Wt 94.1 kg
[~2023-09-29 13:19] MED LIST changes: +HYDR-3972 PO; +OXYC-150 PO
[2023-09-29 13:25] VITALS: TEMP 98
[2023-09-29 14:10] VITALS: BP 188/98; PULSE 88; RESP 16; O2SAT 98
[2023-09-29 15:06] LABS: BASOPHILS % (AUTO) 0.7 % (0-1); EOSINOPHILS # (AUTO) 0.2 X10'3 (0-0.9); EOSINOPHILS % (AUTO) 2.7 % (0-6); HEMATOCRIT 29.8 % (42.0-52.0); HEMOGLOBIN 9.1 g/dl (14.0-17.9); LYMPHOCYTES # (AUTO) 1.2 X10'3 (1.1-4.8); LYMPHOCYTES % (AUTO) 18.9 % (21-51); MEAN CORPUSCULAR HEMOGLOBIN 21.2 PG (27.0-31.0); MEAN CORPUSCULAR HGB CONC 30.6 g/dL (33.0-36.5); MEAN CORPUSCULAR VOLUME 69.2 FL (78-98); MONOCYTES # (AUTO) 0.5 X10'3 (0-0.9); NEUTROPHILS # (AUTO) 4.3 X10'3 (1.8-7.7); NEUTROPHILS % (AUTO) 69.7 % (42-75); PLATELET COUNT 217 X10'3 (140-440); RED CELL DISTRIBUTION WIDTH 18.9 % (11.5-14.5); WHITE BLOOD COUNT 6.2 X10'3 (4.5-11.0)
[2023-09-29 15:15] LABS: ALBUMIN 3.2 G/DL (3.4-5.0); ANION GAP 7 (8-16); BLOOD UREA NITROGEN 15 MG/DL (7-18); BUN/CREATININE RATIO 16.9 (10.0-20.0); CALCIUM 8.5 MG/DL (8.5-10.1); CHLORIDE 107 MMOL/L (99-107); CREATININE 0.89 MG/DL (0.60-1.10); GLUCOSE 94 MG/DL (70-104); LIPASE 18 U/L (16-77); POTASSIUM 3.7 MMOL/L (3.5-5.1); SODIUM 139 MMOL/L (135-145); TOTAL CARBON DIOXIDE 25.4 MMOL/L (24-32); eCRCL 89 ML/MIN; eGFR 87 ML/MIN
[2023-09-29] MEDS: morphine 4 MG/ML inj SYRINge IV ONE (15:20)
[2023-09-29] MEDS: ondansetron/PF 4mg/2ml inj IV ONE (15:20)
[2023-09-29] MEDS ORDERED: iohexol 300mg/ml 100ml inj. ONE (15:35)
[2023-09-29 15:37] LABS: PLATELET ESTIMATE NORMAL
[2023-09-29 15:38] LABS: ANISOCYTOSIS 2+; ELLIPTOCYTES FEW; HYPOCHROMASIA 1+; MICROCYTOSIS 2+; POLYCHROMASIA FEW
== END 2023-09-29 16:07 | disposition left against medical advice (07) ==
LOC: ER 13:20
DX: S20.212A Contusion of left front wall of thorax, initial encounter (principal); I10 Essential (primary) hypertension; K21.9 Gastro-esophageal reflux disease without esophagitis; Z79.899 Other long term (current) drug therapy; V89.2XXA Person injured in unspecified motor-vehicle accident, traffic, initial encounter; Y93.89 Activity, other specified; Y92.89 Other specified places as the place of occurrence of the external cause; Y99.8 Other external cause status
CPT/HCPCS: 36415; 73030; 80048; 83690; 85008; 85025; 99284; J3490; Q9967